=== PATIENT | female | born 1950 | race Caucasian/White ===

== ENCOUNTER 2019-01-07 10:12 | Day surgery (SDC) | payer MEDICAID, OTHER ==
[~2019-01-07] VITALS: Ht 165.1 cm; Wt 47.6 kg
[2019-01-07] MEDS ORDERED: fentaNYL 0.05 MG/ML VIAL ONE (12:11)
[2019-01-07] MEDS ORDERED: LIDOCAINE 2% 100 MG/5 ML UJET TP ONE (12:11)
== END 2019-01-07 13:20 | disposition home or self-care (01) ==
LOC: MDS 10:12 → MMU 10:12 → MDS 13:20
PROVIDERS: ATTEND Internal Medicine Gastroenterology
DX: Z12.11 Encounter for screening for malignant neoplasm of colon (principal); D12.0 Benign neoplasm of cecum; F17.200 Nicotine dependence, unspecified, uncomplicated; Z79.899 Other long term (current) drug therapy
CPT/HCPCS: 45380; J3010

== ENCOUNTER 2021-10-03 02:09 | Emergency (ER) | payer OTHER ==
[~2021-10-03] VITALS: Ht 152.4 cm; Wt 63.5 kg
--- NOTE | 2021-10-03 02:12 | NUR ---
BIBA TAKEN TO BED #5
[2021-10-03 02:20] VITALS: BP 159/84
--- NOTE | 2021-10-03 02:29 | NUR ---
SANDIP GREEN AT BEDSIDE FOR EXAMINATION
--- NOTE | 2021-10-03 02:45 | NUR ---
LAB AT BEDSIDE
--- NOTE | 2021-10-03 02:55 | NUR ---
IV ESTABLISHED 20G LEFT AC
[2021-10-03 03:03] LABS: APPEARANCE,URINE CLEAR (CLEAR); BILIRUBIN,URINE NEGATIVE (NEGATIVE); BLOOD, URINE NEGATIVE (NEGATIVE); COLOR,URINE YELLOW (YELLOW); LEUKOCYTE ESTERASE ,URINE 2+ (NEGATIVE); NITRITE, URINE NEGATIVE (NEGATIVE); PH,URINE 6.5 (5.0-9.0); UGLUCOSE NEGATIVE (NEGATIVE)
[2021-10-03 03:08] LABS: BASOPHILS % (AUTO) 0.5 % (0.0-2.0); EOSINOPHILS # (AUTO) 0.1 K/uL (0-0.4); HEMATOCRIT 38.4 % (36-48); HEMOGLOBIN 12.7 g/dL (12.0-16.0); LYMPHOCYTES # (AUTO) 2.5 K/uL (2.5-16.5); LYMPHOCYTES % (AUTO) 25.9 % (20.5-51.1); MEAN CORPUSCULAR HEMOGLOBIN 30 pg (27-31); MEAN CORPUSCULAR HGB CONC 33 g/dL (33-37); MEAN CORPUSCULAR VOLUME 91.1 fL (80-94); MONOCYTES # (AUTO) 0.8 K/uL (0.8-1.0); MONOCYTES % (AUTO) 8.2 % (1.7-9.3); NEUTROPHILS # (AUTO) 6.2 K/uL (1.8-7.7); NEUTROPHILS % (AUTO) 64.4 % (42.2-75.2); PLATELET COUNT (AUTO) 233 K/uL (140-450); RED BLOOD CELL COUNT(AUTO) 4.21 MIL/uL (4.20-5.40); RED CELL DISTRIBUTION WIDTH 14.6 % (11.6-13.7); WHITE BLOOD COUNT (AUTO) 9.7 K/uL (4.8-10.8)
[2021-10-03 03:21] LABS: RBC,URINE 0-5 /HPF (0-5)
[2021-10-03 03:26] LABS: ALBUMIN 3.8 g/dL (3.4-5.0); ANION GAP 13.7 (8-16); ASPARTATE AMINOTRANSFERASE 20 U/L (15-37); CARBON DIOXIDE 24.4 mmol/L (21-32); CHLORIDE 101 mmol/L (98-107); CREATININE 0.6 mg/dL (0.6-1.3); GFR ARICAN-AMERICAN 127 mL/min (>90); GLUCOSE 143 mg/dL (74-106); LIPASE 65 U/L (73-393); POTASSIUM 3.1 mmol/L (3.5-5.1); SODIUM SERUM 136 mmol/L (136-145); TOTAL BILIRUBIN 0.5 mg/dL (0.0-1.0); UREA NITROGEN, BLOOD 8 mg/dL (7-18)
[2021-10-03] MEDS ORDERED: POTASSIUM CHLORIDE 10 MEQ TABER PO ONE (03:40)
--- NOTE | 2021-10-03 03:52 | NUR ---
PATIENT TAKEN TO CT VIA W/C
[2021-10-03] MEDS ORDERED: cefTRIAXone 1,000 MG VIAL ONE (03:57)
--- NOTE | 2021-10-03 04:38 | NUR ---
PATIENT VSS, SITTING IN BED. BED LOW AND LOCKED. ALL NEEDS MET AT THIS TIME.
--- NOTE | 2021-10-03 04:55 | NUR ---
PATIENT AMBULATED TO THE RR
--- NOTE | 2021-10-03 05:25 | NUR ---
MD GREEN AT BEDSIDE ASSESSING PATIENT
[2021-10-03] MEDS ORDERED: CEPH-588 PO (05:40)
--- NOTE | 2021-10-03 05:45 | NUR ---
IV removed, catheter intact and site benign. Applied folded 4x4 gauze and tape to stop bleeding.
--- NOTE | 2021-10-03 05:49 | NUR ---
SPOKE TO DAUGHTER ASHLYN TO GIVE UPDATE ON PATIENTS CONDITION
[2021-10-03 05:50] VITALS: BP 145/81
--- NOTE | 2021-10-03 05:50 | NUR ---
Patient discharged with v/s stable. Written and verbal after care instructions given on UTI/ abd pain and explained. Patient alert, oriented and verbalized understanding of instructions. Ambulatory with steady gait. All questions addressed prior to discharge. ID band removed. Patient advised to follow up with PMD. Rx of Cephalexin given.
--- NOTE | 2021-10-03 05:50 | NUR ---
PATIENT REFUSED FOR MD OR NURSE TO CONTACT FAMILY FOR TRANSPORTATION. PATIENT STATED THAT SHE HAD NO PAIN AT THIS TIME AND WAS ABLE TO DRIVE HER CAR THAT THE POLICE DROPPED OFF AT [facility]. PATIENT AMBULATED TO [facility] PARKED IN FRONT OF THE ER. DAUGHTER ASHLYN WAS CALLED AND NOTIFIED THAT HER MOTHER WAS DRIVING HOME, HER CAR WAS HERE. DAUGHTER ALSO MADE AWARE TO FOLLOW UP WITH PCP, ALL DOCUMENT PROVIDED TO PATIENT UPON DISCHARGE.
--- NOTE | 2021-10-03 06:20 | NUR ---
The patient's care was reviewed and supervised by Carmen French RN.
== END 2021-10-03 05:50 | disposition home or self-care (01) ==
LOC: MED 02:09
DX: N39.0 Urinary tract infection, site not specified (principal); E87.5 Hyperkalemia; E11.9 Type 2 diabetes mellitus without complications
CPT/HCPCS: 36415; 74177; 80053; 81001; 83690; 84484; 85025; 87086; 93005; 96365; 99291; J0696; Q9967